=== PATIENT | female | born 1965 | race Caucasian/White ===

== ENCOUNTER 2021-03-09 14:23 | Emergency (ER) | payer OTHER ==
[2021-03-09 16:03] LABS: BILIRUBIN NEGATIVE (NEGATIVE); BLOOD TRACE-INTACT Ery/uL (NEGATIVE); CLARITY CLEAR (CLEAR); COLOR YELLOW (YELLOW); GLUCOSE (U) NORMAL (NORMAL); LEUKOCYTES NEGATIVE Leu/uL (NEGATIVE); NITRITE NEGATIVE (NEGATIVE); PROTEIN NEGATIVE (NEGATIVE); SPECIFIC GRAVITY <=1.005 (1.001-1.030)
[2021-03-09 16:09] LABS: BASOPHIL 0 % (0-2); EOSINOPHIL 0 % (0-5); HCT 42.9 % (37.0-47.0); HGB 14.1 g/dl (12.5-16.0); LYMPHOCYTE 25.7 % (15-48); MCH 30.3 pg (25.0-31.0); MCHC 32.9 g/dL (32.0-36.0); MCV 92.1 fL (78.0-100.0); MONOCYTE 10.9 % (0-12); MPV 10.6 fL (6.0-9.5); NEUTROPHIL 62.8 % (41-80); NRBC 0; PLT 140 K/uL (150-400); RBC 4.66 M/uL (4.20-5.40); RDW 13.1 % (11.5-14.0); WBC 3.6 K/uL (4.0-10.5)
[2021-03-09 16:14] LABS: BACTERIA 1+
[2021-03-09 16:22] LABS: BUN/CREAT RATIO (CALC) 8.6 RATIO; CREATININE 0.7 mg/dL (0.51-0.95); POTASSIUM 3.3 mmol/L (3.5-5.1)
[2021-03-09 16:39] LABS: CORONAVIRUS 2019 SARS-COV-2 POSITIVE (NEGATIVE)
[2021-03-09 16:40] LABS: INFLUENZA A NAA NEGATIVE (NEGATIVE)
[2021-03-09] MEDS ORDERED: VENTOLIN HFA IN18 GM INH (18:22)
[2021-03-09] MEDS ORDERED: MEDROL 4MG DOSEP4 MG PO (18:22)
== END 2021-03-09 18:45 | disposition home or self-care (01) ==
LOC: FER 14:23
PROVIDERS: Nurse Practitioner Family
DX: U07.1 COVID-19 (principal); J45.909 Unspecified asthma, uncomplicated; I25.2 Old myocardial infarction; Z23 Encounter for immunization; Z88.5 Allergy status to narcotic agent
CPT/HCPCS: 36415; 71045; 80048; 81001; 85025; J7030; M0243; Q0244; U0002